=== PATIENT | female | born 1990 | race Caucasian/White ===

== ENCOUNTER 2017-03-15 14:06 | Emergency (ER) | payer BC ==
[2017-03-15 14:28] VITALS: BP 142/68
[2017-03-15] MEDS ORDERED: Aspirin Low Dose CHEW TAB* 81 MG PO ONE (14:45)
--- NOTE | 2017-03-15 14:45 | ED ---
HPI Chest Pain - HPI Summary HPI Summary: 26 year old female presents with left sided chest pain and very concerned with having an [facility]. - History of Current Complaint Chief Complaint: UCChestPain - Allergy/Home Medications Allergies/Adverse Reactions: Allergies Allergy/AdvReac Type Severity Reaction Status Date / Time No Known Allergies Allergy Verified 03/15/17 14:20 Home Medications: Home Medications Levothyroxine TAB* [Synthroid TAB*] 100 mcg PO DAILY 03/15/17 [History Confirmed 03/15/17] PMH/Surg Hx/FS Hx/Imm Hx Endocrine/Hematology History: Reports: Hx Thyroid Disease - Surgical History Surgery Procedure, Year, and Place: I&D OF LEG INFECTION AGE 14 Infectious Disease History: No Infectious Disease History: Denies: Traveled Outside the [place] in Last 30 Days - Family History Known Family History: Positive: Cardiac Disease, Hypertension - Social History Alcohol Use: Rare Substance Use Type: Reports: None Smoking Status (MU): Former Smoker Type: Cigarettes Amount Used/How Often: 1/2 PPD Length of Time of Smoking/Using Tobacco: 9 yrs Have You Smoked in the Last Year: Yes Review of Systems Constitutional: Negative Positive: Chest Pain All Other Systems Reviewed And Are Negative: Yes Physical Exam Triage Information Reviewed: Yes Vital Signs On Initial Exam: Initial Vitals Temp Pulse Resp BP Pulse Ox 36.8 C 74 20 142/68 100 03/15/17 14:21 03/15/17 14:21 03/15/17 14:21 03/15/17 14:21 03/15/17 14:21 Appearance: Positive: Pain Distress Diagnostics - Vital Signs Vital Signs Temp Pulse Resp BP Pulse Ox 03/15/17 14:21 36.8 C 74 20 142/68 100 - Laboratory Lab Statement: Any lab studies that have been ordered have been reviewed, and results considered in the medical decision making process. Chest Pain Course/Dx - Diagnoses Provider Diagnoses: Chest pain Discharge - Discharge Plan Condition: Stable Disposition: AGAINST MEDICAL ADVICE Referrals: Rl Bernardo [Primary Care Provider] -
== END 2017-03-15 14:56 | disposition left against medical advice (07) ==
LOC: UCCORT 14:06
DX: R07.9 Chest pain, unspecified (principal); E07.9 Disorder of thyroid, unspecified; Z72.0 Tobacco use; Z53.20 Procedure and treatment not carried out because of patient's decision for unspecified reasons
CPT/HCPCS: 93005; 99213; A9270-GY; G0463

== ENCOUNTER 2017-04-01 20:20 | Emergency (ER) | payer SELFPAY ==
[2017-04-01 20:42] VITALS: BP 150/80
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
== END 2017-04-01 21:29 | disposition home or self-care (01) ==
LOC: UCCORT 20:20
DX: S20.219A Contusion of unspecified front wall of thorax, initial encounter (principal); V43.52XA Car driver injured in collision with other type car in traffic accident, initial encounter; Y93.89 Activity, other specified; Y92.410 Unspecified street and highway as the place of occurrence of the external cause; Y99.0 Civilian activity done for income or pay; E03.9 Hypothyroidism, unspecified; E66.9 Obesity, unspecified; Z87.891 Personal history of nicotine dependence
CPT/HCPCS: 99211; G0463

== ENCOUNTER 2017-05-31 06:09 | Inpatient (IN) | payer BC ==
[~2017-05-31 06:09] MED LIST: Buffered Lidocaine 0.9% SYRIN* 5 ML/SYR SYRINGE INTRADERM ONE
[2017-05-31] MEDS ORDERED: Heparin VIAL(*) 5000 UNITS/ML VIAL (FIVE THOUSAND) ONE (06:33)
[2017-05-31] MEDS ORDERED: ceFAZolin 1 GM ADVAN(*) 1 GM ADDV.VIAL IVPB ONE (06:33)
[2017-05-31] MEDS ORDERED: Buffered Lidocaine 0.9% SYRIN* 5 ML/SYR SYRINGE ONE (06:33)
[2017-05-31] MEDS ORDERED: Clindamycin 900 MG IVPREMIX(* 900 MG/50 ML SDV IV ONE (06:33)
[2017-05-31] MEDS ORDERED: ceFAZolin 2 GM PREMIX (*) 50 ML IVPB ONE (06:33)
[2017-05-31] MEDS ORDERED: Methylene Blue 0.5 %* 50 MG/10 ML AMP IV ONE (07:22)
[2017-05-31] MEDS ORDERED: Bupivacaine 0.25% SDV* 30 ML ONE ×2 (07:22→08:31)
[2017-05-31] MEDS ORDERED: fentaNYL* 50 MCG/ML 2 ML VIAL (100 MCG VIAL) ONE ×8 (07:26→14:37)
[2017-05-31] MEDS ORDERED: Midazolam* 1 MG/ML 5 ML VIAL (5 MG) ONE (07:26)
[2017-05-31] MEDS ORDERED: Cisatracurium* 2 MG/ML MDV 5 ML ONE ×2 (08:00→09:00)
[2017-05-31] MEDS ORDERED: Dexamethasone IV* 4 MG/ML 1 ML (4 MG) ONE (08:00)
[2017-05-31] MEDS ORDERED: Famotidine IV* 10 MG/ML 2 ML (20 mg) ONE (08:00)
[2017-05-31] MEDS ORDERED: Propofol* 10 MG/ML 20 ML BTL IV PUSH ONE (08:00)
[2017-05-31] MEDS ORDERED: Succinylcholine* 20 MG/ML 10 ML VIAL ONE (08:00)
[2017-05-31] MEDS ORDERED: Lidocaine 2% PF * 5 ML VIAL ONE (08:00)
[2017-05-31] MEDS ORDERED: HYDROmorphone INJ* 1 MG/ML CARPUJECT SYRINGE ONE ×5 (08:12→15:19)
[2017-05-31] MEDS ORDERED: Desflurane* 240 ML INH ONE (08:19)
[2017-05-31] MEDS ORDERED: DiMENhydriNATE IV* 50 MG/ML VIAL IV PUSH PRN (09:50)
[2017-05-31] MEDS ORDERED: PROCHLORPERAZINE INJ 5 MG/ML 2 ML VIAL IV PRN (09:50)
[2017-05-31] MEDS ORDERED: Ondansetron INJ* 2 MG/ML VIAL IV PRN ×2 (09:50→12:00)
[2017-05-31] MEDS ORDERED: Scopolamine 1.5 mg* PATCH TRANSDERM PRN (09:50)
[2017-05-31] MEDS ORDERED: Labetalol IV* 5 MG/ML 20 ML VIAL ONE (10:42)
[2017-05-31] MEDS ORDERED: Ondansetron INJ* 2 MG/ML VIAL ONE ×2 (11:40→15:51)
[2017-05-31] MEDS ORDERED: HYDROmorphone INJ* 1 MG/ML CARPUJECT SYRINGE IV PRN ×2 (12:00→14:15)
--- NOTE | 2017-05-31 12:10 | PN ---
Progress Note - Progress Note Date of Service: 05/31/17 Note: Brief Operative Note: Pre-op: Morbid obesity Post-op: Same Procedure: Laparoscopic inna-en-Y gastric bypass Surgeon: Dr. Maurer Cost Controller: TERRA Jarrett Jo: THIEN EBL: Minimal Fluids: Crystalloid 2000 cc Catheter: Ryan to gravity Drains: GARY to self-suction Specimen: Portion of small bowel Findings: See dictated op note
[2017-05-31] MEDS: fentaNYL* 50 MCG/ML 2 ML VIAL (100 MCG VIAL) IV PRN ×4 (12:14→12:39)
[2017-05-31] MEDS: HYDROmorphone INJ* 1 MG/ML CARPUJECT SYRINGE IV PRN ×2 (12:31→12:41)
[2017-05-31] MEDS ORDERED: Scopolamine 1.5 mg* PATCH ONE (13:46)
[2017-05-31] MEDS: Pantoprazole IV* 40 MG IV SCH (15:14)
[2017-05-31] MEDS ORDERED: Ketorolac INJ* 30 MG/ML 1 ML VIAL ONE (15:51)
[2017-05-31] MEDS ORDERED: Metoclopramide IV* 5 MG/ML 2 ML VIAL ONE (16:17)
[2017-05-31] MEDS ORDERED: HYDROmorphone INJ* 2 MG/ML CARPUJECT SYRINGE ONE (16:25)
[2017-05-31] MEDS: HYDROmorphone INJ* 2 MG/ML CARPUJECT SYRINGE IV PRN (19:43)
[2017-05-31] MEDS: Heparin VIAL(*) 5000 UNITS/ML VIAL (FIVE THOUSAND) SUBCUT SCH (22:47)
[2017-06-01] MEDS: HYDROmorphone INJ* 2 MG/ML CARPUJECT SYRINGE IV PRN ×2 (00:36→09:10)
--- NOTE | 2017-06-01 02:29 | OP ---
CC: TERRA Yo; [facility] * DATE OF OPERATION: 05/31/17 - ROOM #353 DATE OF : 86 SURGEON: Pro Maurer MD PULLMAN CONDUCTOR: TERRA Mc ANESTHESIOLOGIST: Dr. Gee. ANESTHESIA: General anesthesia. PRE-OP DIAGNOSES: 1. Clinically severe obesity. 2. Obstructive sleep apnea. POST-OP DIAGNOSES: 1. Clinically severe obesity. 2. Obstructive sleep apnea. OPERATIVE PROCEDURE: Laparoscopic Inna-en-Y gastric bypass. ESTIMATED BLOOD LOSS: Less than 100 cc. FLUIDS: Crystalloid fluid given. SPECIMEN: None. DRAINS: A #7 GARY drain. COUNT: Lap pad count and instrument count correct at the end of the procedure. DESCRIPTION OF PROCEDURE: The patient was identified in the preoperative area. Case was discussed with her and her family, and she was marked and consent signed. She was taken to the operating room, placed on the operating room in the supine position. Preoperative antibiotics were given. Sequential devices were placed on bilateral lower extremities. General anesthesia was induced. The patient's abdomen was prepped and draped in the standard surgical fashion. A time-out was performed. Folds of the umbilicus were elevated anteriorly and a Veress needle was inserted into the abdominal cavity, which was then allowed to insufflate to a pressure of 15 mmHg. The patient tolerated the insufflation well. [place] between the xiphoid and the umbilicus, a 12-mm trocar was inserted. The laparoscope was inserted through this. Additional 12 mm trocar was then placed in the left upper quadrant and was shifted to this side and Veress needle was identified. It was removed. There was no evidence of injury from the trocar insertion or the Veress needle. Additional trocars were then placed in the following position, a 5 mm in the left upper quadrant, and a 5 mm and a 12 mm in the right upper quadrant. Attention was turned towards the liver. It appeared mildly enlarged, but we certainly felt comfortable going forward with the procedure. The omentum was reflected superiorly, the transverse colon identified and retracted, and the ligament of Treitz was easily identified. Approximately 60 cm was counted off from the ligament of Treitz. The bowel was transected at this site. A small enterotomy was made on what would become the biliopancreatic limb. Next, approximately 100 cm was counted off from the site, this would become the Inna limb. Enterotomy was made at this site, and a jejunojejunostomy was created with a 60-mm floyd-LUIS E stapling device. The common enterotomy was reapproximated with interrupted 2-0 silk sutures in a [id number] fashion and the mesenteric defect was similarly closed. Next, attention was turned towards the stomach, this was decompressed with an OG tube, which was then removed. A Juanito retractor was inserted through the subxiphoid incision and the liver was retracted anteriorly into the right. This exposed the gastroesophageal fat pad, which was retracted towards the right lower quadrant. Both blunt and sharp dissection was carried out to expose the left shaila. Next, a retrogastric tunnel was made between the second and third crossing vessel and the stomach was transected initially with a 45 mm floyd-LUIS E stapling device and then a pouch completed with an additional 60 mm floyd-LUIS E stapling device extending this through the fundus. With the pouch now made, we then brought the small bowel in apposition to this. The Inna limb appeared to have some tension and for this reason, the omentum was split with LigaSure device. This allowed for the Inna limb to come up within better apposition. Stay sutures using 2-0 silk sutures were placed at the small bowel against the stapled edge of the stomach pouch. We did candy cane this to some extent because of the tension. There was no tension on this site that would become the planned anastomosis. Next, a gastrotomy was made over an Millie tube and an enterotomy was made. The gastrojejunostomy anastomosis was created with a 30-mm floyd-LUIS E stapling device firing through 2.5 cm of it. The enterotomy was then closed with interrupted 3- 0 silk sutures in a ifclvq-ip-[id number] fashion. The small bowel enterotomy portion was somewhat large and did require reconstruction with multiple stitches. Imbricating stitches were also placed on top of the initial closure site for the second layer. Next, with the Inna limb clamped distally, the Millie tube was inserted through the anastomosis with ease and a methylene blue dye test was performed. There was a scant amount of blue dye on a gauze, which we did not appreciate exactly where this was coming, but we placed a U-stitch in the region in the posterior aspect of the anastomosis. The blue dye test was performed again in a similar fashion and there was no extravasation of blue dye. The candycaned portion of small bowel athe the proximal inna seneca was then transected with 60mm LUIS E after taking down a small portion of the mesentery close to the bowel. This bowel was removed from the abdomen using a endobag; it was not sent to pathology. Next, a #7 GARY drain was inserted. The abdomen and bladder through the left lateral most port site and 3-0 Surgipro sutures. Review of the jejunojejunostomy showed that it was intact and hemostasis was excellent. We removed the Juanito retractor and placed the patient back to the neutral position. Trocar was removed under direct vision and all additional skin incisions were reapproximated with skin lidia followed by sterile dressing. The patient tolerated the procedure well, was woken up in the OR, and transferred to the PACU in stable condition. [id number]/[facility] #: [id number] ANDREEA
[2017-06-01] MEDS: Heparin VIAL(*) 5000 UNITS/ML VIAL (FIVE THOUSAND) SUBCUT SCH ×3 (06:15→21:36)
--- NOTE | 2017-06-01 08:55 | RAD ---
HISTORY: Status post Mode-en-Y gastric bypass COMPARISONS: February 07, 2017 TECHNIQUE: A single contrast fluoroscopic study was performed of the esophagus and upper GI tract. Water-soluble liquid contrast was administered under fluoroscopic observation. Multiple digital spot images were obtained Total fluoroscopy time is 0.6 minutes. FINDINGS: ESOPHAGUS: The esophagus is normal in contour, course, and caliber. There is no stricture or web. Contrast passes easily through the gastroesophageal junction into the stomach. There is normal esophageal motility. UPPER GI TRACT: Oral contrast flows easily through the level of the anastomosis into the Mode-en-Y bypass. There is no extravasation or obstruction.. IMPRESSION: STATUS POST MODE-EN-Y GASTRIC BYPASS. NO APPRECIABLE EXTRAVASATION OR OBSTRUCTION. CPT II Codes: 6045F
[2017-06-01] MEDS: D5W 1/2 NS KCl 20 Meq 1000 ML* 1,000 ML IV SCH (10:21)
--- NOTE | 2017-06-01 11:27 | PN ---
Progress Note - Progress Note Date of Service: 06/01/17 Note: Surgery Progress: S: POD #1. Some discomfort. No N/V. Ambulating. O: Vital Signs - 8 hr 06/01/17 06/01/17 06/01/17 04:00 04:41 07:18 Temperature 98.5 F Pulse Rate 58 Respiratory 20 Rate Blood Pressure 141/76 (mmHg) O2 Sat by Pulse 99 99 100 Oximetry 06/01/17 06/01/17 06/01/17 08:00 09:10 10:00 Temperature Pulse Rate Respiratory 22 22 22 Rate Blood Pressure (mmHg) O2 Sat by Pulse 100 Oximetry 06/01/17 10:10 Temperature Pulse Rate Respiratory 18 Rate Blood Pressure (mmHg) O2 Sat by Pulse Oximetry Intake and Output Last 24 Hours 05/30/17 05/31/17 06/01/17 06/02/17 06:59 06:59 06:59 06:59 Intake Total 4134 Output Total 2395 600 Balance 1739 -600 Weight 308 lb Intake: IV Fluids 4134 ANCEF 3 GM 100 CLINDAMYCIN 900MG 50 LR 3984 Oral 0 Output: GARY #1 45 Ryan 2350 600 Other: # Bowel Movements 0 Gen: NAD Heart: reg Lungs: clear ant Abd: +BS; sl hypoactive; GARY: light, clear sero sang; soft; mild to mod incisional tenderness, dahlia LUQ UGI: normal A/P: s/p lap RYGB, doing well; start radha clears; Ryan out
[2017-06-01] MEDS ORDERED: HYDROcodone/ACET. 7.5/325 LIQ* 15 ML UDC PO PRN (11:52)
[2017-06-01] MEDS ORDERED: Acetaminophen ADULT LIQ* 650 MG/20.3 ML UDC PO PRN (12:33)
[2017-06-01] MEDS: Levothyroxine TAB* 125 MCG TAB PO SCH (12:43)
[2017-06-01] MEDS: Pantoprazole IV* 40 MG IV SCH (12:43)
[2017-06-02] MEDS: D5W 1/2 NS KCl 20 Meq 1000 ML* 1,000 ML IV SCH (02:22)
[2017-06-02] MEDS: Levothyroxine TAB* 125 MCG TAB PO SCH (05:34)
[2017-06-02] MEDS: Heparin VIAL(*) 5000 UNITS/ML VIAL (FIVE THOUSAND) SUBCUT SCH (05:34)
[2017-06-02 07:41] VITALS: BP 150/81
--- NOTE | 2017-06-02 12:59 | PN ---
Progress Note - Progress Note Date of Service: 06/01/17 SOAP: Subjective: Pt sen and examined afternoon. Doing well. UGI reviewed, images and report. Pt tolerating clears. Nausea overnight resolving. OOB, voiding post removal of lucio Objective: [af vss abdo: soft/ ND, incisional tenderness. GARY serosang no calf tenderness Assessment: POD1 RYGB Plan: continue GARY d/c planning
--- NOTE | 2017-06-03 03:19 | DS ---
CC: TERRA Yo * DISCHARGE SUMMARY: DATE OF ADMISSION: 05/31/17 DATE OF DISCHARGE: 06/02/17 ATTENDING PHYSICIAN: Dr. Pro Maurer * (DICTATED BY TERRA NUÑEZ) HOSPITAL COURSE: Please refer to admission history and physical for admission details. The patient was taken to the operating room on 05/31/17 and underwent laparoscopic Mode-en-Y gastric bypass with Dr. Maurer (see separate operative report). Postoperative course was otherwise uneventful. She had a normal upper GI the morning of postoperative day 1. Thereafter, she was able to advance in terms of oral intake of bariatric clear liquids. As of the morning of discharge, her intake was adequate as was her pain control. PHYSICAL EXAMINATION: Temperature 98.1, blood pressure 150/81, pulse 56, respirations 16, room air saturation 97%. General: Well-nourished, well- developed female in no acute distress. Heart: Regular rate and rhythm. Lungs : Clear to auscultation. No wheezes. Abdomen: Laparoscopic incision sites without evidence of infection. Dressings were removed. Eugenio-Brown drain was also removed without incident. Dry sterile dressing placed. DISCHARGE INSTRUCTIONS: Instructions were reviewed regarding wound care, activity, and diet. She already has an appointment for followup at the [facility] for metabolic and bariatric surgery. TERRA NUÑEZ [id number]/[facility] #: [id number] MTDD
[2017-06-03] MEDS ORDERED: Scopolomine PATCH Remove* 1 NOTE MISC PATCH OFF ONE (09:51)
== END 2017-06-02 11:00 | disposition home or self-care (01) | DRG 403 ==
LOC: AA 06:09 → SSU 14:36
PROVIDERS: ADMIT Surgery; ATTEND Surgery
PROC: 0D164ZA Bypass Stomach to Jejunum, Percutaneous Endoscopic Approach (ICD-10-PCS; principal; 2017-05-31 07:45)
DX: E66.01 Morbid (severe) obesity due to excess calories (principal); E03.9 Hypothyroidism, unspecified; I10 Essential (primary) hypertension; G47.33 Obstructive sleep apnea (adult) (pediatric); M54.9 Dorsalgia, unspecified; Z87.891 Personal history of nicotine dependence; Z68.43 Body mass index [BMI] 50.0-59.9, adult
CPT/HCPCS: 43644; 74246; 81025; A9270-GY; C1776; J0330; J0690; J1100; J1170; J1644; J1885; J2250; J2405; J2704; J2765; J3010

== ENCOUNTER 2019-04-24 08:46 | Emergency (ER) | payer BC ==
[2019-04-24 09:09] VITALS: BP 133/69
--- NOTE | 2019-04-24 09:47 | UC ---
Throat Pain/Nasal [place] HPI - HPI Summary HPI Summary: nasal congestion cough x 3 days runny nose, pnd , sore throat, symptoms are 5 out of 10 very stuffy , no fever, no chills + dry cough - History of Current Complaint Chief Complaint: UCGeneralIllness Stated Complaint: COUGH,CONGESTION Time Seen by Provider: 04/24/19 09:31 Hx Obtained From: Patient Hx Last Menstrual Period: 03/05/17 Onset/Duration: Gradual Onset, Lasting Days - 3, Still Present Severity: Moderate Pain Intensity: 0 Pain Scale Used: 0-10 Numeric Cough: Nonproductive Associated Signs & Symptoms: Positive: Nasal Discharge. Negative: Dysphagia, FB Sensation, Drooling, Wheezing, Hoarseness, Sinus Discomfort, Fever, Vomiting , Rash - Allergies/Home Medications Allergies/Adverse Reactions: Allergies Allergy/AdvReac Type Severity Reaction Status Date / Time No Known Allergies Allergy Verified 04/24/19 09:09 PMH/Surg Hx/FS Hx/Imm Hx - Additional Past Medical History Additional PMH: anemia Endocrine History: Hypothyroidism - Surgical History Surgical History: Yes Surgery Procedure, Year, and Place: I&D OF LEG INFECTION AGE 14. gastric bipass 2017 - Family History Known Family History: Positive: Cardiac Disease, Hypertension Negative: Diabetes - Social History Alcohol Use: None Substance Use Type: None Smoking Status (MU): Former Smoker Type: Cigarettes Amount Used/How Often: 1/2 PPD Length of Time of Smoking/Using Tobacco: 9 yrs Have You Smoked in the Last Year: Yes When Did the Patient Quit Smoking/Using Tobacco: OCTOBER 2016 Household Exposure Type: Cigarettes - Immunization History Most Recent Influenza Vaccination: 2 YEARS AGO Most Recent Pneumonia Vaccination: HAS NOT HAD Review of Systems All Other Systems Reviewed And Are Negative: Yes Constitutional: Positive: Negative Skin: Positive: Negative Eyes: Positive: Negative ENT: Positive: Ear Ache, Nasal Discharge Respiratory: Positive: Cough Cardiovascular: Positive: Negative Is Patient Immunocompromised?: No Physical Exam Triage Information Reviewed: Yes Appearance: Well-Appearing, No Pain Distress, Well-Nourished Vital Signs: Initial Vital Signs Temp 98.5 F 04/24/19 09:01 Pulse 63 04/24/19 09:01 Resp 16 04/24/19 09:01 BP 133/69 04/24/19 09:01 Pulse Ox 100 04/24/19 09:01 Vital Signs Reviewed: Yes Eye Exam: Normal Eyes: Positive: Conjunctiva Clear ENT: Positive: Normal ENT inspection, Hearing grossly normal, Pharynx normal, Nasal congestion, Nasal drainage, TMs normal. Negative: TM bulging, TM dull, TM red Neck: Positive: Supple, Nontender, No Lymphadenopathy Respiratory: Positive: Chest non-tender, Lungs clear, Normal breath sounds Cardiovascular: Positive: RRR, No Murmur, Pulses Normal Abdominal Exam: Normal Abdomen Description: Positive: Nontender, Soft Bowel Sounds: Positive: Present Throat Pain/Nasal Course/Dx - Differential Dx/Diagnosis Provider Diagnosis: URI (upper respiratory infection) Discharge ED - Sign-Out/Discharge Documenting (check all that apply): Patient Departure All imaging exams completed and their final reports reviewed: No Studies - Discharge Plan Condition: Stable Disposition: HOME Patient Education Materials: Upper Respiratory Infection (DC) Referrals: Rl Walker PA [Primary Care Provider] - If Needed - Billing Disposition and Condition Condition: STABLE Disposition: Home
== END 2019-04-24 09:40 | disposition home or self-care (01) ==
LOC: UCCORT 08:46
DX: J06.9 Acute upper respiratory infection, unspecified (principal); Z87.891 Personal history of nicotine dependence
CPT/HCPCS: 99211; G0463

== ENCOUNTER 2021-11-24 05:49 | Inpatient (IN) ==
[2021-11-24 06:36] LABS: ABS Lymphocytes 1.2 10^3/ul (1.0-4.8); ABS Monocytes 0.3 10^3/ul (0-0.8); Eosinophil % 0.9 %; Hematocrit 32 % (35-47); Hemoglobin 11.1 g/dL (12.0-16.0); Lymphocyte % 22.1 %; Mean Corpuscular HGB Conc 34 g/dL (31-36); Mean Corpuscular Hemoglobin 33 pg (27-31); Mean Corpuscular Volume 95 fL (80-97); Mean Platelet Volume 8.5 fL (7.4-10.4); Platelet Count 161 10^3/uL (150-450); Red Cell Distribution Width 16 % (10-15); White Blood Count 5.6 10^3/uL (3.5-10.8)
[2021-11-24] MEDS ORDERED: ceFOXitin 2 GM PREMIX 50 ML IVPB ONE (07:00)
[2021-11-24] MEDS ORDERED: Sodium Citrate/Citric Acid LIQ 15 ML UDC ONE (07:39)
[2021-11-24] MEDS ORDERED: Morphine PF AMP (0.5MG/ML) 5 MG/10 ML AMP ONE (07:53)
[2021-11-24] MEDS ORDERED: Buffered Lidocaine 1% SYRIN 1 ml INTRADERM ONE (07:55)
[2021-11-24] MEDS ORDERED: Phenylephrine 40 mcg/mL 10mL (400mcg) SYRINGE ONE (07:55)
[2021-11-24] MEDS ORDERED: Lactated Ringers 1000 ml BAG 1,000 ML IV ONE (07:55)
[2021-11-24] MEDS ORDERED: Ondansetron 4 mg VIAL 2 MG/ML 2 ml VIAL ONE (07:55)
[2021-11-24] MEDS ORDERED: Oxytocin 10 UNITS/ML 1 ML VIAL ONE (07:55)
[2021-11-24] MEDS ORDERED: Lactated Ringers 1000 ml BAG 1,000 ML IV SCH ×2 (08:00→11:00)
[2021-11-24] MEDS ORDERED: ceFOXitin 2 GM IVPREMIX 2 GM/50 ML BAG ONE ×2 (08:22→08:25)
[2021-11-24] MEDS ORDERED: EPHEDrine (Pressors) 50 MG/ML VIAL ONE (08:52)
[2021-11-24] MEDS ORDERED: Acetaminophen IV 1 GM/100ML 100 ML IV ONE (09:08)
[2021-11-24] MEDS ORDERED: Naloxone 0.4 mg VIAL 0.4 mg/ml 1 ml VIAL IV PRN ×2 (09:20→09:21)
[2021-11-24] MEDS ORDERED: DiMENhydriNATE IV 50 mg/ml 1 ml VIAL IV PUSH PRN (09:20)
[2021-11-24] MEDS ORDERED: HYDROmorphone 1 MG/1 ML SYRINGE IV PRN (09:20)
[2021-11-24] MEDS ORDERED: Ondansetron 4 mg VIAL 2 MG/ML 2 ml VIAL IV PRN (09:21)
[2021-11-24] MEDS ORDERED: diPHENhydraMINE IV 50 MG/ML 1 ml VIAL (BENADRYL) IV PRN (09:21)
[2021-11-24] MEDS ORDERED: Glycerin ADULT 2.4 gm SUPP PR PRN (10:57)
[2021-11-24] MEDS ORDERED: Dibucaine 1% OINT 28.35 GM TUBE PR PRN (10:57)
[2021-11-24] MEDS ORDERED: Witch Hazel PAD JAR TOPICAL PRN (10:57)
[2021-11-24] MEDS ORDERED: Oxytocin in LR 20 UNITS/1,000 ML BAG IVPB SCH (11:00)
[2021-11-24 17:11] LABS: Urine Appearance Clear; Urine Bilirubin Negative (Negative); Urine Blood Negative (Negative); Urine Color Yellow; Urine Glucose Negative (Negative); Urine Ketones Negative (Negative); Urine Nitrite Negative (Negative); Urine Protein Negative (Negative); Urine Urobilinogen Negative (Negative)
[2021-11-24 17:31] LABS: Urine Benzodiazepine Screen None Detected (None Detect); Urine Cannabinoids Screen None Detected (None Detect); Urine Opiates Screen None Detected (None Detect)
[2021-11-25 06:21] LABS: ABS Lymphocytes 0.8 10^3/ul (1.0-4.8); ABS Monocytes 0.4 10^3/ul (0-0.8); ABS Neutrophils 4.2 10^3/ul (1.5-7.7); Eosinophil % 0.5 %; Hematocrit 26 % (35-47); Hemoglobin 8.9 g/dL (12.0-16.0); Lymphocyte % 14.6 %; Mean Corpuscular HGB Conc 35 g/dL (31-36); Mean Corpuscular Hemoglobin 33 pg (27-31); Mean Corpuscular Volume 95 fL (80-97); Mean Platelet Volume 8.8 fL (7.4-10.4); Platelet Count 118 10^3/uL (150-450); Red Blood Count 2.71 10^6 /uL (3.70-4.87); Red Cell Distribution Width 15 % (10-15); White Blood Count 5.5 10^3/uL (3.5-10.8)
[2021-11-25] MEDS: oxyCODONE/Acetamin 5/325 mg TAB PO PRN ×4 (08:03→20:21)
[2021-11-26 10:51] VITALS: BP 125/64
== END 2021-11-26 11:43 | disposition home or self-care (01) | DRG 540 ==
LOC: MCHOB 05:49
PROVIDERS: ADMIT Obstetrics & Gynecology; ATTEND Obstetrics & Gynecology

== ENCOUNTER 2024-08-20 04:35 | Inpatient (IN) ==
[2024-08-20] MEDS ORDERED: Lidocaine 1% VIAL 10 MG/ML 30 ML VIAL INJ PRN (05:33)
[2024-08-20 05:39] LABS: Hematocrit 32.4 % (35-45); Hemoglobin 11.3 g/dL (11.5-14.3); Mean Corpuscular Hemoglobin 32.5 pg (27-33); Mean Corpuscular Hgb Conc 34.9 g/dL (31-36); Mean Corpuscular Volume 93.2 fL (80-97); Mean Platelet Volume 9.5 fL (7.5-11.2); Platelet Count 210 10^3/uL (150-450); Red Blood Count 3.48 10^6/uL (3.63-4.92); Red Cell Distribution Width 14.7 % (12-17); White Blood Count 7.1 10^3/uL (3.8-11.8)
[2024-08-20] MEDS ORDERED: fentaNYL 100 mcg/2 ml 50 MCG/ML VIAL ONE (05:50)
[2024-08-20] MEDS ORDERED: Morphine PF AMP (0.5MG/ML) 5 MG/10 ML AMP ONE (05:50)
[2024-08-20] MEDS ORDERED: Sodium Citrate/Citric Acid LIQ 15 ML UDC ONE (05:54)
[2024-08-20] MEDS ORDERED: Sodium Chloride 0.9% 10 ML ONE (06:03)
[2024-08-20] MEDS ORDERED: Phenylephrine 40 mcg/mL 10mL (400mcg) SYRINGE ONE (06:03)
[2024-08-20] MEDS ORDERED: Ondansetron 4 mg VIAL 2 MG/ML 2 ml VIAL ONE (06:52)
[2024-08-20 07:30] LABS: Urine Appearance Turbid; Urine Bilirubin Negative (Negative); Urine Blood Negative (Negative); Urine Color Yellow; Urine Glucose Negative (Negative); Urine Ketones Negative (Negative); Urine Nitrite Negative (Negative); Urine Protein 1+ (>=30 mg/dL) (Negative); Urine Specific Gravity 1.031 (1.002-1.030); Urine Urobilinogen 1+ (Negative)
[2024-08-20 07:36] LABS: Urine Bacteria Absent /HPF (Absent); Urine Red Blood Cell 1+(3-5/hpf) /HPF (0-Trace); Urine Squamous Epithelial Cell Present /HPF (Absent); Urine White Blood Cell Trace(0-5/hpf) /HPF (0-Trace)
[2024-08-20] MEDS ORDERED: Metoclopramide 5 MG/ML VIAL (10 mg) IV PRN (07:46)
[2024-08-20] MEDS ORDERED: Ondansetron 4 mg VIAL 2 MG/ML 2 ml VIAL IV PRN (07:46)
[2024-08-20] MEDS ORDERED: Naloxone 0.4 mg VIAL 0.4 mg/ml 1 ml VIAL IV PUSH PRN (07:46)
[2024-08-20] MEDS ORDERED: Acetaminophen IV 1 GM/100ML 1,000 MG/100 ML BAG IV PRN (07:46)
[2024-08-20] MEDS ORDERED: Acetaminophen IV 1 GM/100ML 1,000 MG/100 ML BAG IV ONE (07:49)
[2024-08-20 08:10] LABS: Urine Benzodiazepine Screen None Detected (None Detect); Urine Cannabinoids Screen None Detected (None Detect); Urine Opiates Screen None Detected (None Detect)
[2024-08-20] MEDS ORDERED: Oxytocin 10 UNITS/ML 1 ML VIAL ONE (08:13)
[2024-08-20] MEDS ORDERED: Dexamethasone IV 4 MG/ML VIAL 1 ml VIAL ONE (08:23)
[2024-08-20] MEDS ORDERED: Witch Hazel PAD JAR TOPICAL PRN (08:45)
[2024-08-20] MEDS ORDERED: Glycerin ADULT 2.4 gm SUPP PR PRN (08:45)
[2024-08-20] MEDS ORDERED: Dibucaine 1% OINT 28.35 GM TUBE PR PRN (08:45)
[2024-08-20] MEDS ORDERED: Lactated Ringers 1000 ml BAG 1,000 ML IV SCH (09:00)
[2024-08-20] MEDS: Enoxaparin 60 MG/0.6 ML SYR SUBCUT SCH (18:29)
[2024-08-20 18:31] LABS: Hematocrit 27.3 % (35-45); Hemoglobin 9.5 g/dL (11.5-14.3)
[2024-08-20] MEDS: Oxytocin in LR 20,000 MILLI.UNIT/1,000 ML BAG IV SCH (18:40)
[2024-08-20] MEDS: Sodium Citrate/Citric Acid LIQ 15 ML UDC ONE (18:40)
[2024-08-20] MEDS: Lactated Ringers 1000 ml BAG 1,000 ML IV SCH (18:40)
[2024-08-20] MEDS: Lactated Ringers 1000 ml BAG 1,000 ML IV ONE (18:40)
[2024-08-20] MEDS: ceFOXitin 2 GM IVPREMIX 2 GM/50 ML BAG IVPB ONE (18:40)
[2024-08-20] MEDS: Buffered Lidocaine 1% SYRIN 1 ml INTRADERM ONE (18:41)
[2024-08-21 07:34] LABS: ABS Lymphocytes 1.9 10^3/uL (1.0-4.8); ABS Monocytes 0.6 10^3/uL (0.0-0.9); ABS Neutrophils 6.4 10^3/uL (1.5-7.6); Eosinophil % 0.4 %; Hematocrit 28.8 % (35-45); Lymphocyte % 20.9 %; Mean Corpuscular Hemoglobin 32.8 pg (27-33); Mean Corpuscular Hgb Conc 34.8 g/dL (31-36); Mean Corpuscular Volume 94.5 fL (80-97); Mean Platelet Volume 9.7 fL (7.5-11.2); Platelet Count 171 10^3/uL (150-450); Red Blood Count 3.04 10^6/uL (3.63-4.92); Red Cell Distribution Width 15.1 % (12-17)
[2024-08-22 07:54] VITALS: BP 130/58
== END 2024-08-22 14:33 | disposition home or self-care (01) | DRG 540 ==
LOC: MCHOBOUT 04:35 → MCHOB 05:13
PROVIDERS: ADMIT Obstetrics & Gynecology; ATTEND Obstetrics & Gynecology